=== PATIENT | male | born 1955 | race Caucasian/White ===

== ENCOUNTER 2016-08-13 18:55 | Emergency (ER) | payer BC ==
[~2016-08-13] VITALS: Ht 185.4 cm; Wt 95.3 kg
[2016-08-13 18:59] VITALS: BP_SYST 123
[2016-08-13 19:50] LABS: BASOPHILS % (AUTO) 0.2 % (0.0-2.0); EOSINOPHILS # (AUTO) 0.1 K/uL (0.0-0.4); EOSINOPHILS % (AUTO) 1.2 % (0.0-4.0); HEMATOCRIT 41.9 % (36-54); HEMOGLOBIN 14.3 g/dL (14.0-18.0); LYMPHOCYTES # (AUTO) 2.9 K/uL (1.0-5.5); LYMPHOCYTES % (AUTO) 32.9 % (20.5-51.5); MEAN CORPUSCULAR HEMOGLOBIN 34 pg (27-31); MEAN CORPUSCULAR HGB CONC 34 % (32-36); MEAN CORPUSCULAR VOLUME 99 fL (79.0-98.0); MONOCYTES # (AUTO) 0.8 K/uL (0.0-1.0); MONOCYTES % (AUTO) 8.5 % (1.7-9.3); NEUTROPHILS # (AUTO) 5.1 K/uL (1.8-7.7); NEUTROPHILS % (AUTO) 57.2 % (40.0-70.0); PLATELET COUNT (AUTO) 233 K/uL (130-430); RED BLOOD CELL COUNT(AUTO) 4.24 MIL/uL (4.2-6.2); RED CELL DISTRIBUTION WIDTH 13.3 % (9.0-15.0); WHITE BLOOD COUNT (AUTO) 8.9 K/uL (4.8-10.8)
[2016-08-13 19:53] LABS: CALCIUM 8.7 mg/dL (8.4-11.0); POTASSIUM 3.9 mmol/L (3.5-5.1)
[2016-08-13 19:57] LABS: ALBUMIN 3.5 g/dL (3.4-4.8); TOTAL BILIRUBIN 0.2 mg/dL (0.0-1.0)
[2016-08-13 20:01] LABS: INR 0.9 (0.80-1.20); PROTHROMBIN TIME 9.9 SECS (9.5-12.5)
[2016-08-13] MEDS ORDERED: NACL 0.9% 1,000 ML IV ONE (20:45)
[2016-08-13 22:15] VITALS: BP_SYST 129
== END 2016-08-13 22:14 | disposition home or self-care (01) ==
LOC: SED 18:55
DX: E86.0 Dehydration (principal); R51 Headache; Z98.890 Other specified postprocedural states
CPT/HCPCS: 36415; 70450; 71010; 80053; 82550; 83880; 84484; 85025; 85610; 85730; 93005; 96360; 99285; J7030

== ENCOUNTER 2023-05-07 20:12 | Inpatient (IN) | payer BC ==
[~2023-05-07] VITALS: Ht 185.4 cm; Wt 73.9 kg
[2023-05-07 20:12] VITALS: BP_SYST 137; PULSE 66; RESP 11; TEMP 97.8; O2SAT 97
[2023-05-07 20:41] LABS: BASOPHILS % (AUTO) 0.5 % (0.0-2.0); EOSINOPHILS # (AUTO) 0.1 K/uL (0.0-0.4); EOSINOPHILS % (AUTO) 1.4 % (0.0-4.0); HEMATOCRIT 39.9 % (36-54); LYMPHOCYTES # (AUTO) 1.9 K/uL (1.0-5.5); LYMPHOCYTES % (AUTO) 29.8 % (20.5-51.5); MEAN CORPUSCULAR HEMOGLOBIN 35 pg (27-31); MEAN CORPUSCULAR HGB CONC 35 % (32-36); MEAN CORPUSCULAR VOLUME 99 fL (79.0-98.0); MONOCYTES # (AUTO) 0.8 K/uL (0.0-1.0); MONOCYTES % (AUTO) 12.1 % (1.7-9.3); NEUTROPHILS # (AUTO) 3.5 K/uL (1.8-7.7); NEUTROPHILS % (AUTO) 56.2 % (40.0-70.0); PLATELET COUNT (AUTO) 223 K/uL (130-430); RED BLOOD CELL COUNT(AUTO) 4.01 MIL/uL (4.2-6.2); RED CELL DISTRIBUTION WIDTH 14.3 % (9.0-15.0); WHITE BLOOD COUNT (AUTO) 6.3 K/uL (4.8-10.8)
[2023-05-07 20:56] LABS: ANION GAP 3 (5-15); CALCIUM 8.8 mg/dL (8.4-11.0); CARBON DIOXIDE 30 mmol/L (23-29); CHLORIDE 100 mmol/L (98-107); CREATININE 0.78 mg/dL (0.55-1.30); GFR AFRICAN AMERICAN 127 mL/min (>90); GLUCOSE 100 mg/dL (74-106); POTASSIUM 3.9 mmol/L (3.5-5.1); SODIUM SERUM 133 mmol/L (136-145); UREA NITROGEN, BLOOD 11 mg/dL (8-21)
[2023-05-07 20:57] LABS: GFR NON AFRICAN-AMERICAN 105 mL/min (>90)
[2023-05-07 21:05] LABS: PROTHROMBIN TIME 10.2 SECS (9.5-12.5)
[2023-05-07] MEDS ORDERED: iohexoL 350 mgI/mL, 100 ML INFUS..BTL IV ONE (21:07)
[2023-05-07] MEDS ORDERED: LIP10 PO (21:26)
[2023-05-07] MEDS ORDERED: METH-799 PO (21:26)
[2023-05-07] MEDS ORDERED: DOCU-156 PO (21:26)
[2023-05-07] MEDS ORDERED: MIDO10TA PO (21:26)
[2023-05-07] MEDS ORDERED: TAMS0.4C96 PO (21:26)
[2023-05-07] MEDS ORDERED: PANT20TA16 PO (21:26)
[2023-05-07] MEDS: ASPIRIN 81 MG TABLET(ECOTRIN) PO ONE (22:15)
[2023-05-08 08:56] VITALS: BP_SYST 151; PULSE 62; RESP 15; TEMP 98.4
[2023-05-08] MEDS ORDERED: DOCUSATE SODIUM 100 MG CAPSULE PO PRN (09:30)
[2023-05-08] MEDS ORDERED: methocarbamoL 500 MG TABLET PO PRN (09:30)
[2023-05-08 13:12] VITALS: BP_SYST 130; PULSE 66; RESP 15; TEMP 98.6; O2SAT 94
[2023-05-08] MEDS: MIDODRINE HCL 5 MG TABLET (PROAMATINE) PO SCH (15:00)
[2023-05-08] MEDS: ATORVASTATIN 10 MG TABLET PO ONE (18:10)
[2023-05-08 20:00] VITALS: BP_SYST 147; PULSE 56; RESP 16; TEMP 97.1; O2SAT 96
[2023-05-08] MEDS: TAMSULOSIN HCL 0.4 MG CAP PO SCH (20:57)
[2023-05-08] MEDS ORDERED: MIDODRINE HCL 5 MG TABLET (PROAMATINE) PO PRN (21:30)
[2023-05-09 00:11] VITALS: BP_SYST 141; PULSE 68; RESP 18; TEMP 97.4; O2SAT 95
[2023-05-09] MEDS: ASPIRIN 81 MG TABLET(ECOTRIN) PO SCH (08:43)
[2023-05-09] MEDS: ATORVASTATIN 10 MG TABLET PO SCH (08:43)
[2023-05-09 09:00] VITALS: BP_SYST 119; PULSE 87; RESP 18; TEMP 97.7; O2SAT 98
[2023-05-09 10:13] VITALS: BP_SYST 119; PULSE 85; RESP 18; TEMP 97.7; O2SAT 97
[2023-05-09 10:20] VITALS: BP_SYST 133; PULSE 71
[2023-05-09 10:28] VITALS: BP_SYST 133; PULSE 75
[2023-05-09 10:40] VITALS: BP_SYST 133; PULSE 85
[2023-05-09] MEDS ORDERED: [UNRECOGNIZED DRUG - CODE] MC (10:56)
[2023-05-09] MEDS ORDERED: FLOR.1 PO (10:56)
== END 2023-05-09 11:07 | disposition home or self-care (01) | DRG 92 ==
LOC: SED 20:12 → SMU 22:13 → OBSVTOIN 05-08 13:10
PROVIDERS: ADMIT Specialist; ATTEND Specialist
DX: G90.1 Familial dysautonomia [Riley-Day] (principal); G45.9 Transient cerebral ischemic attack, unspecified; G81.91 Hemiplegia, unspecified affecting right dominant side; I10 Essential (primary) hypertension; E78.5 Hyperlipidemia, unspecified; Z88.5 Allergy status to narcotic agent; Z79.899 Other long term (current) drug therapy; G62.9 Polyneuropathy, unspecified; N40.0 Benign prostatic hyperplasia without lower urinary tract symptoms; M48.02 Spinal stenosis, cervical region; I95.89 Other hypotension
CPT/HCPCS: 36415; 70450-TC; 70496; 70498; 70551; 71045; 80048; 82533; 84484; 85025; 85610; 85730; 93005; 93306; 97112-GP; 97116-GP; 97530-GP; 99285; G0378; Q9967